=== PATIENT | female | born 1930 | race Caucasian/White ===

== ENCOUNTER 2019-10-25 14:00 | Observation (INO) ==
--- NOTE | 2019-10-25 14:08 | Emergency Department Note ---
ED Disposition Clinical Impression: Generalized weakness, Colonic mass, Liver metastasis, Hyponatremia Anemia Qualifiers: Anemia type: unspecified type Qualified Code(s): D64.9 - Anemia, unspecified Disposition: Admitted as Observation Condition on Discharge: Fair Additional Instructions: Patient was admitted to the floor under Dr. Larsen. Referrals: Provider,Referral, [Primary Care Provider] - Time of Disposition: 17:50 - Critical Care Critical Care Time: No Attestation: On , the high probability of a clinically significant, sudden or life threatening deterioration of the following system(s) required my full and direct attention, intervention and personal management. The time I documented below is in addition to time spent performing reported procedures but includes the following listed in this critical care notation. Medical Decision Making - Porfirio Inquiry Pt receiving controlled substance: No Vital Signs: 10/25/19 13:55 10/25/19 16:56 Temperature 99.9 F H Temperature Source Oral Pulse Rate [Right Radial] 70 63 Respiratory Rate 20 Blood Pressure [Right Arm] 112/76 122/64 Blood Pressure Mean [Right Arm] 88 83 Blood Pressure Source [Right Arm] Automatic Cuff Blood Pressure Position [Right Arm] Sitting 02 Sat by Pulse Oximetry 98 96 Oxygen Delivery Method Room Air - Lab Data Lab results reviewed: Yes: I reviewed the patient's lab results. Lab Results 10/25/19 14:30: WBC 4.6 L, RBC 3.67 L, Hgb 9.1 L, Hct 30.6 L, MCV 83.4, MCH 24.9 L, MCHC 29.8 L, RDW 14.1, Plt Count 298, MPV 7.8, Neut % (Auto) 88.0 H, Lymph % (Auto) 8.3 L, [place] % (Auto) 3.2, Eos % (Auto) 0.0 L, Baso % (Auto) 0.5, Neut # (Auto) 4.1, Lymph # (Auto) 0.4 L, [place] # (Auto) 0.2, Eos # (Auto) 0.0, Baso # (Auto) 0.0, Total Counted 100, Neutrophils % (Manual) 93 H, Lymphocytes % (Manual) 7 L, Platelet Estimate Normal, RBC Morphology Normal 10/25/19 14:30: Sodium 129 L, Potassium 4.2, Chloride 95 L, Carbon Dioxide 27, Anion Gap 11.2, BUN 19 H, Creatinine 0.83, Estimated Creat Clear 44, Estimated GFR 65, Est GFR ( Amer) 79, Glucose 106, Calcium 8.6, Total Bilirubin 0.3, AST 30, ALT 14, Alkaline Phosphatase 83, Troponin I < 0.02, Total Protein 7.1, Albumin 2.7 L, Globulin 4.4 H, Albumin/Globulin Ratio 0.6 L, Lipase 77 Result diagrams: 10/25/19 14:30 10/25/19 14:30 Orders (Tests/Meds): ED MEDICATIONS Discontinued Medications Generic Name Dose Route Start Last Admin Trade Name Freq PRN Reason Stop Dose Admin Ioversol 75 ml 10/25/19 15:53 10/25/19 15:54 Rad-Optiray 350 100ml Vial IV 10/25/19 15:54 75 ml ONCE ONE Administration Protocol Sodium Chloride 10 ml 10/25/19 15:53 10/25/19 15:54 Rad-Saline Flush 10ml Syringe IV 10/25/19 15:54 10 ml ONCE ONE Administration ORDERS Category Date Time Status Troponin I Q3H Lab 10/25/19 17:30 Ordered Troponin I Q3H Lab 10/25/19 20:30 Ordered - CT Data CT Scan: Abdomen Time Received: 17:[address] Reviewed: Yes: I have reviewed the patient's CT results Findings Narrative: CT ABDOMEN PELVIS W CON CLINICAL INDICATION: lower Quadrant abdominal pain Right lower quadrant pain, recent injury with pain COMPARISON: No exams were available for comparison TECHNIQUE: IV Contrast: 75ML OPTIRAY 350 Oral Contrast none Axial images obtained with sagittal and coronal reformats. All CT scans at the facility use one or more dose reduction, viz: automated exposure control, ma/kV adjustment per patient size (including targeted exams where dose is matched to indication, i.e. head), or iterative reconstruction technique. FINDINGS: LOWER THORAX: There is cardiomegaly with coronary artery calcification noted. There is mild prominence of the right atrium. ABDOMEN & PELVIS: There are multiple hepatic masses in the right hepatic lobe the measuring up to 4.8 cm suspicious for metastatic disease. Hypodense lesion is present in the left hepatic lobe at 13 mm and could be due to small cyst. The spleen, adrenal glands, and pancreas have an unremarkable appearance. There are multiple bilateral renal cysts. There is concentric thickening of the cecum consistent with a cecal mass suspicious for neoplasm. No evidence of small-bowel obstruction. There is a mild amount of retained colonic feces in the rectosigmoid region. There are post hysterectomy changes. No acute bony anomalies. IMPRESSION: There are multiple hypodense hepatic masses as well as concentric thickening of the cecum consistent with a cecal mass. 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 Nonspecific ST-T changes. - Physician Consults Physician Consulted: Dr. Larsen Time: 17:30 Reason -: Admission, Pt condition Comment/Response: Cussed with Dr. Larsen, regarding the patient and plan to get the patient admitted to the floor. Weakness HPI - General Chief complaint: Weakness Stated complaint: WEAKNESS Time Seen by Provider: 10/25/19 14:08 Mode of Arrival: EMS Source of Information: Relative Limitations: She seems to have dementia and is not able to give proper history. - History of Present Illness HPI Narrative: 89-year-old female was brought into the emergency department by the EMS for having complaining of right lower quadrant abdominal pain and also having generalized body weakness. According to the son the patient does not take care of herself well. She has been having issues with right lower quadrant abdominal pain for a while. Also has history of constipation. She has history of anemia. She is on iron pills. The son states that at times she may take more than what is needed of her iron pills and at times she takes more of her cardiac meds. He is very concerned about the patient. He states the patient does not want to move out of her house. The son thinks that the patient is not safe to live by herself. He wants her to be moved out either to an assisted living or to his sister's place. - Related Data Home Medications Medication Instructions Recorded Confirmed Losartan Potassium [Cozaar] 100 mg PO DAILY 06/19/18 09/12/18 Metoprolol Succinate [Toprol XL 50 mg PO BID 06/19/18 09/12/18 50mg Tablet] Aspirin [Aspirin 81mg EC Tab] 81 mg PO DAILY 09/12/18 09/12/18 Cyanocobalamin (Vitamin B-12) 2,500 mcg SL DAILY 09/12/18 09/12/18 [Vitamin B-12] Nitroglycerin [Nitrostat 0.4mg SL 0.4 mg SL Q5MINP PRN 09/12/18 09/12/18 Tablet] Allergies Allergy/AdvReac Type Severity Reaction Status Date / Time procaine [From Novocain] Allergy swelling Verified 06/19/18 08:53 [facility] History - Hepatitis A Screen Attestation statement:: This patient has been screened for Hepatitis A risk factors. I have reviewed the patient's past medical history: Yes Medical History: Denies:: Diabetes Mellitus Type 1, Diabetes Mellitus Type 2 - Social History Alcohol Intake: never ROS Obtained: Yes All systems reviewed & no additional complaints Physical Exam - General General appearance: alert, in no apparent distress - Head Head exam: atraumatic, normocephalic, normal inspection - Eye Eye exam: Present: normal appearance, PERRL, EOMI - ENT ENT exam: Present: normal exam, normal oropharynx, mucous membranes moist, normal external ear exam - Neck Neck exam: Present: normal inspection, full ROM, trachea midline - Chest Chest inspection: Present: normal inspection, symmetric chest wall rise. Absent: tenderness - Respiratory Respiratory exam: Present: normal lung sounds bilaterally. Absent: respiratory distress - Cardiovascular Cardiovascular exam: Present: regular rate, normal rhythm. Absent: JVD - Abdominal Exam Abdominal exam: Present: soft, tenderness (Her on palpation of the lower quadrant of the abdomen more on the right than the left. Patient seems to have large amount of stool in the lower quadrant.), normal bowel sounds. Absent: distention, guarding - Extremities Exam Extremities exam: Present: normal inspection, full ROM, normal capillary refill. Absent: calf tenderness - Back Exam Back exam: Present: normal inspection. Absent: tenderness - Neurological Exam Neurological exam: Present: alert, oriented X3, CN II-XII intact - Psychiatric Psychiatric exam: Present: normal affect, normal mood - Skin Skin exam: Present: warm, dry, intact, normal color
[2019-10-25 14:45] LABS: Basophils % 0.5 % (0.1-2.0); Hematocrit 30.6 % (37.0-47.0); Hemoglobin 9.1 g/dL (12.2-16.2); Lymphocytes # 0.4 K/mm3 (0.7-4.5); Lymphocytes % 8.3 % (10-50); Mean Corpuscular HGB Conc 29.8 g/dL (31.8-35.4); Mean Corpuscular Volume 83.4 fl (81-99); Mean Platelet Volume 7.8 fl (7.4-10.4); Monocytes # 0.2 K/mm3 (0.1-1.0); Monocytes % 3.2 % (1.7-9.3); Neutrophils # 4.1 K/mm3 (1.8-7.8); Platelet Count 298 K/mm3 (142-424); Red Blood Count 3.67 M/mm3 (4.20-5.40); Red Cell Distribution Width 14.1 % (11.5-17.5); White Blood Count 4.6 K/mm3 (4.8-10.8)
[2019-10-25 14:59] LABS: Alanine Aminotransferase 14 U/L (12-78); Albumin Level 2.7 gm/dL (3.4-5.0); Albumin/Globulin Ratio 0.6 (1.1-1.8); Alkaline Phosphatase 83 U/L (46-116); Anion Gap 11.2 mEq/L (5-15); Aspartate Amino Transferase 30 U/L (15-37); Bilirubin,Total 0.3 mg/dL (0.2-1.0); Blood Urea Nitrogen 19 mg/dL (7-18); Calcium 8.6 mg/dL (8.5-10.1); Carbon Dioxide 27 mmol/L (21.0-32.0); Chloride 95 mmol/L (98-107); Globulin 4.4 gm/dl (1.3-3.2); Glucose 106 mg/dL (74-106); Sodium 129 mmol/L (136-145); Total Protein,Serum 7.1 gm/dL (6.4-8.2)
[2019-10-25 15:27] LABS: Lymphocytes % 7 % (10-50); Neutrophils % 93 % (42-76); RBC Morphology Normal; Total Cells Counted 100
--- NOTE | 2019-10-25 17:47 | Electrocardiograph Report ---
APPROVED REPORT Exam: Resting ECG HR:75 bpm ECG Measurements Heart Rate 75 AXES TX P 91 QRSd 86 QRS 34 QT 426 T71 QTc 475 <Conclusion> Sinus Rhythm with multiple PAC'S Otherwise normal ECG Electronically signed by : Peterson Nation, 10/25/2019 17:46:48
--- NOTE | 2019-10-26 07:12 | Pharmacy Consult Notes ---
[facility] VTE Monitoring - Patient Demographics Admission date: 10/25/19 Report Date: 10/26/19 Time: 07:11 Allergies/Adverse Reactions: Patient Allergies procaine [From Novocain] Allergy (Verified 06/19/18 08:53) swelling Height: 1.73 m Weight: 63.758 kg Patient Problems: Current Active Problems Anemia (Acute) Generalized weakness (Acute) Colonic mass (Acute) Liver metastasis (Acute) Hyponatremia (Acute) - VTE Risk Labs: VTE Related Lab Results Hgb 9.1 g/dL (12.2-16.2) L 10/25/19 14:30 Hct 30.6 % (37.0-47.0) L 10/25/19 14:30 Plt Count 298 K/mm3 (142-424) 10/25/19 14:30 BUN 19 mg/dL (7-18) H 10/25/19 14:30 Creatinine 0.83 mg/dL (0.55-1.02) 10/25/19 14:30 Estimated Creat Clear 44 mL/min (50-200) 10/25/19 14:30 - Prophylaxis VTE Prophylaxis Ordered?: Yes Types of VTE Prophylaxis: TEDS Knee High Location of Applied Device: Bilateral Lower Extremeties
[2019-10-26 07:37] LABS: Basophils % 0.3 % (0.1-2.0); Eosinophils % 0.3 % (0.1-12.0); Hematocrit 28.7 % (37.0-47.0); Hemoglobin 8.7 g/dL (12.2-16.2); Lymphocytes # 0.5 K/mm3 (0.7-4.5); Lymphocytes % 8.8 % (10-50); Mean Corpuscular HGB Conc 30.2 g/dL (31.8-35.4); Mean Corpuscular Volume 82.7 fl (81-99); Mean Platelet Volume 7.9 fl (7.4-10.4); Monocytes # 0.3 K/mm3 (0.1-1.0); Monocytes % 5.2 % (1.7-9.3); Neutrophils # 4.6 K/mm3 (1.8-7.8); Neutrophils % 85.3 % (37.0-80.0); Platelet Count 263 K/mm3 (142-424); Red Blood Count 3.48 M/mm3 (4.20-5.40); White Blood Count 5.4 K/mm3 (4.8-10.8)
[2019-10-26 07:42] LABS: Anion Gap 12.6 mEq/L (5-15); Calcium 8.1 mg/dL (8.5-10.1)
--- NOTE | 2019-10-26 08:54 | History & Physical Report ---
*Admission Date: 10/25/19 *Chief complaint: Fall, hyponatremia, weakness *History of present illness: Ms. Cary is an 89-year-old female with limited outpatient medical management due to dislike of physicians. She presented to the ER yesterday at the request of her son due to multiple falls at home and worsening weakness and belly pain. He states she has not seen a doctor in approximately 2 years and he had to "trick her" into coming to the hospital. He has had significant concern for her wellbeing for quite some time as she has some dementia and lives by herself. He states he is her POA and wanted to have her abdominal pain assessed as well as underlying cause for her falls. She has not been having regular bowel movements for well over a year. Has had progressive abdominal pain most prominent in right lower abdomen for 4 to 5 years per his report with recent complaint of pain moving upper abdomen and hurting into her right back and chest. Upon arrival to the ER she had labs and imaging performed of her belly. Labs concerning for mild anemia, otherwise within normal limits. Imaging however concerning for metastatic cancer suspected to be colon cancer with large thickening of the cecum and numerous metastases to her liver. 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 Morning she continues to complain of pain, tenderness in right lower quadrant most predominantly. Denies nausea but is not very hungry and hurts after eating a little bit. Afebrile though temperature elevated. No shortness of breath. No chest pain. [facility] History I have reviewed the patient's past medical history: Yes Medical History: Denies:: Diabetes Mellitus Type 1, Diabetes Mellitus Type 2 *Have you ever received a pneumonia vaccine?: No *Have you received a flu vaccine this season?: No - *Social History Smoking Status: Never smoker Alcohol Intake: never *Occupational Status:: retired *Travel in the last 8 weeks: None Family Hx:: Cancer Review of Systems - Review of Systems Review of systems:: pertinent systems reviewed and negative unless documented below (10 point review of systems performed with the assistance of her son, pertinent positives and negatives as listed in HPI) Meds Home Medications Medication Instructions Recorded Confirmed Type Losartan Potassium [Cozaar] 100 mg PO DAILY 06/19/18 10/25/19 History Metoprolol Succinate [Toprol XL 50 mg PO BID 06/19/18 10/25/19 History 50mg Tablet] Aspirin [Aspirin 81mg EC Tab] 81 mg PO DAILY 09/12/18 10/25/19 History Cyanocobalamin (Vitamin B-12) 2,500 mcg SL DAILY 09/12/18 10/25/19 History [Vitamin B-12] Nitroglycerin [Nitrostat 0.4mg SL 0.4 mg SL Q5MINP PRN 09/12/18 10/25/19 History Tablet] Allergies Allergy/AdvReac Type Severity Reaction Status Date / Time procaine [From Novocain] Allergy swelling Verified 06/19/18 08:53 Exam Vital signs and Labs for Last 24 Hours: Temp Pulse Resp BP Pulse Ox 98.1 F 92 H 18 122/74 98 10/26/19 08:00 10/26/19 08:00 10/26/19 08:00 10/26/19 08:00 10/26/19 08:00 Laboratory Results - last 24 hr 10/25/19 14:30: WBC 4.6 L, RBC 3.67 L, Hgb 9.1 L, Hct 30.6 L, MCV 83.4, MCH 24.9 L, MCHC 29.8 L, RDW 14.1, Plt Count 298, MPV 7.8, Neut % (Auto) 88.0 H, Lymph % (Auto) 8.3 L, [place] % (Auto) 3.2, Eos % (Auto) 0.0 L, Baso % (Auto) 0.5, Neut # (Auto) 4.1, Lymph # (Auto) 0.4 L, [place] # (Auto) 0.2, Eos # (Auto) 0.0, Baso # (Auto) 0.0, Total Counted 100, Neutrophils % (Manual) 93 H, Lymphocytes % (Manual) 7 L, Platelet Estimate Normal, RBC Morphology Normal 10/25/19 14:30: Sodium 129 L, Potassium 4.2, Chloride 95 L, Carbon Dioxide 27, Anion Gap 11.2, BUN 19 H, Creatinine 0.83, Estimated Creat Clear 44, Estimated GFR 65, Est GFR ( Amer) 79, Glucose 106, Calcium 8.6, Total Bilirubin 0.3, AST 30, ALT 14, Alkaline Phosphatase 83, Troponin I < 0.02, Total Protein 7.1, Albumin 2.7 L, Globulin 4.4 H, Albumin/Globulin Ratio 0.6 L, Lipase 77 10/25/19 17:35: Troponin I < 0.02 10/25/19 21:29: POC Glucose 108 10/26/19 05:39: POC Glucose 141 H 10/26/19 07:10: WBC 5.4, RBC 3.48 L, Hgb 8.7 L, Hct 28.7 L, MCV 82.7, MCH 25.0 L , MCHC 30.2 L, RDW 14.0, Plt Count 263, MPV 7.9, Neut % (Auto) 85.3 H, Lymph % (Auto) 8.8 L, [place] % (Auto) 5.2, Eos % (Auto) 0.3, Baso % (Auto) 0.3, Neut # (Auto) 4.6, Lymph # (Auto) 0.5 L, [place] # (Auto) 0.3, Eos # (Auto) 0.0, Baso # (Auto) 0.0 10/26/19 07:10: Sodium 130 L, Potassium 3.6, Chloride 98, Carbon Dioxide 23, Anion Gap 12.6, BUN 15, Creatinine 0.78, Estimated Creat Clear 40, Estimated GFR 70, Est GFR ( Amer) 85, Glucose 117 H, Calcium 8.1 L I & O for Last 24 hours: Intake & Output 10/23/19 10/24/19 10/25/19 10/26/19 23:59 23:59 23:59 23:59 Intake Total 816 / 816 Balance 816 / 816 Weight 70.307 kg 63.758 kg - Constitutional mild distress, average body habitus, chronically ill appearing Comments: Elderly - *Routine HEENT Exam Head: Present: normocephalic Eye: Present: EOMI, PERRL ENT: Present: mucous membranes moist - *Routine Neck Exam Present: supple. Absent: lymphadenopathy - *Routine Respiratory Exam Present: CTA bilaterally - *Routine Cardiovascular Exam Present: murmur, irregularly irregular. Absent: JVD - *Routine Abdominal Exam Present: soft, normoactive bowel sounds, tenderness (Exquisitely tender in right lower quadrant, moderate tenderness right upper quadrant, no rebound) - *Routine Extremities Exam Absent: cyanosis, clubbing, edema - *Routine Skin Exam Present: pallor, warm. Absent: rash - *Routine Neurological Exam Present: alert Oriented to person Assessment and Plan (1) Colon cancer metastasized to liver Current visit: Yes Status: Acute Category: Medical Code(s): C18.9 - Malignant neoplasm of colon, unspecified; C78.7 - Secondary malignant neoplasm of liver and intrahepatic bile duct New diagnosis. Large mass at ileocecal junction with numerous metastases very sized to her liver. (2) Anemia Current visit: Yes Status: Chronic Qualifiers: Anemia type: iron deficiency Qualified Code(s): D64.9 - Anemia, unspecified Category: Medical Code(s): D64.9 - Anemia, unspecified (3) Colonic mass Current visit: Yes Status: Acute Category: Medical Code(s): K63.89 - Other specified diseases of intestine Diagnosis, longstanding however given symptoms (4) Generalized weakness Current visit: Yes Status: Acute Category: Medical Code(s): R53.1 - Weakness Worsening over the past few months (5) Hyponatremia Current visit: Yes Status: Acute Category: Medical Code(s): E87.1 - Hypo- osmolality and hyponatremia Unsure of chronicity however suspect gradual and due to poor nutrition in the setting of metastatic cancer (6) Liver metastasis Current visit: Yes Status: Acute Category: Medical Code(s): C78.7 - Secondary malignant neoplasm of liver and intrahepatic bile duct (7) Hypertension Current visit: No Status: Chronic Category: Medical Code(s): I10 - Essential (primary) hypertension - Assessment and plan all Dx Assessment and Plan for all problems:: 89-year-old female with poor medical compliance, not seen by primary care physician in many years, multiple comorbidities consisting of A. fib, cystic kidney disease, hypertension, chronic anemia who presents with worsening weakness and hyponatremia. Found to have metastatic colon cancer. Given her advanced age and comorbidities, along with poor desire for medical intervention, she is best suited for hospice management. Discussed hospice with family and they are in agreement and would like to take her home to live with her daughter with the assistance of hospice. Feel this is reasonable. We will consult hospice today and anticipate likely discharge tomorrow. Continue IV fluids. Regular diet, patient not interested in eating much however this allows her what ever option she finds palatable. Extensive discussion with family today about cancer staging and suspecting diagnosis along with anticipated prognosis and potential complications. They are all in agreement that quality of life is important to patient and want to focus on her comfort and not aggressive futile therapies. CODE STATUS DNR
[2019-10-26 09:52] LABS: Hypochromasia 1+; Lymphocytes % 8 % (10-50); Monocytes % 4 % (2-9); Neutrophils % 88 % (42-76); Total Cells Counted 100
--- NOTE | 2019-10-26 19:24 | Discharge Summary ---
General - General Admission date:: 10/25/19 Discharge date: 10/27/19 HPI HPI: Ms. Cary is an 89-year-old female with limited outpatient medical management due to dislike of physicians. She presented to the ER yesterday at the request of her son due to multiple falls at home and worsening weakness and belly pain. He states she has not seen a doctor in approximately 2 years and he had to "trick her" into coming to the hospital. He has had significant concern for her wellbeing for quite some time as she has some dementia and lives by herself. He states he is her POA and wanted to have her abdominal pain assessed as well as underlying cause for her falls. She has not been having regular bowel movements for well over a year. Has had progressive abdominal pain most prominent in right lower abdomen for 4 to 5 years per his report with recent complaint of pain moving upper abdomen and hurting into her right back and chest. Upon arrival to the ER she had labs and imaging performed of her belly. Labs concerning for mild anemia, otherwise within normal limits. Imaging however concerning for metastatic cancer suspected to be colon cancer with large thickening of the cecum and numerous metastases to her liver. 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 Morning she continues to complain of pain, tenderness in right lower quadrant most predominantly. Denies nausea but is not very hungry and hurts after eating a little bit. Afebrile though temperature elevated. No shortness of breath. No chest pain. Hospital Course Hospital Course: Ms. Bar was found to have suspected metastatic colon cancer on admission with initial imaging. Given advanced age, comorbidities, patient's long history of avoidance of doctors and poor follow-up, had extensive discussion with family about palliative/hospice care and focusing on quality and comfort as opposed to treatment options. Any options however at this time would be life-prolonging and palliative as her metastatic disease would not be amenable to cure. Family stated that the patient would not want to be aggressive about treatment and opted to pursue hospice. Hospice was consulted during admission, plan to discharge in care of daughter. Patient has remained hemodynamically stable, pain well controlled with minimal need for treatment. Tolerating small amounts of p.o. intake. Stable for discharge to hospice care. Recommend Tylenol 3 to start with for pain control as patient does not like strong pain medication however when pain advances, recommend initiating Roxanol therapy. Discussed possible complications including bowel perforation and the rapid decline this would likely induce. Family stated understanding. Objective Vital signs: Temp Pulse Resp BP Pulse Ox 98.2 F 73 18 145/74 H 96 10/26/19 16:00 10/26/19 16:00 10/26/19 16:00 10/26/19 16:00 10/26/19 16:00 Narrative: - Constitutional NAD, average body habitus, chronically ill appearing Comments: Elderly - *Routine HEENT Exam Head: Present: normocephalic Eye: Present: EOMI, PERRL ENT: Present: mucous membranes moist - *Routine Neck Exam Present: supple. Absent: lymphadenopathy - *Routine Respiratory Exam Present: CTA bilaterally - *Routine Cardiovascular Exam Present: murmur, irregularly irregular. Absent: JVD - *Routine Abdominal Exam Present: soft, normoactive bowel sounds, tenderness (Exquisitely tender in right lower quadrant, moderate tenderness right upper quadrant, no rebound) - *Routine Extremities Exam Absent: cyanosis, clubbing, edema - *Routine Skin Exam Present: pallor, warm. Absent: rash - *Routine Neurological Exam Present: alert, Oriented to person Results Labs on day of discharge: Labs from last 24 hours 10/26/19 10/26/19 10/26/19 18:27 07:10 07:10 WBC 5.4 RBC 3.48 L Hgb 8.7 L Hct 28.7 L MCV 82.7 MCH 25.0 L MCHC 30.2 L RDW 14.0 Plt Count 263 MPV 7.9 Neut % (Auto) 85.3 H Lymph % (Auto) 8.8 L Real % (Auto) 5.2 Eos % (Auto) 0.3 Baso % (Auto) 0.3 Neut # (Auto) 4.6 Lymph # (Auto) 0.5 L Real # (Auto) 0.3 Eos # (Auto) 0.0 Baso # (Auto) 0.0 Total Counted 100 Neutrophils % (Manual) 88 H Lymphocytes % (Manual) 8 L Monocytes % (Manual) 4 Platelet Estimate Normal Hypochromasia 1+ Sodium 130 L Potassium 3.6 Chloride 98 Carbon Dioxide 23 Anion Gap 12.6 BUN 15 Creatinine 0.78 Estimated Creat Clear 40 Estimated GFR 70 Est GFR ( Amer) 85 Glucose 117 H POC Glucose 115 H Calcium 8.1 L 10/26/19 10/25/19 05:39 21:29 WBC RBC Hgb Hct MCV MCH MCHC RDW Plt Count MPV Neut % (Auto) Lymph % (Auto) Real % (Auto) Eos % (Auto) Baso % (Auto) Neut # (Auto) Lymph # (Auto) Real # (Auto) Eos # (Auto) Baso # (Auto) Total Counted Neutrophils % (Manual) Lymphocytes % (Manual) Monocytes % (Manual) Platelet Estimate Hypochromasia Sodium Potassium Chloride Carbon Dioxide Anion Gap BUN Creatinine Estimated Creat Clear Estimated GFR Est GFR ( Amer) Glucose POC Glucose 141 H 108 Calcium DS: Diagnosis - Discharge Diagnosis (1) Colon cancer metastasized to liver Status: Acute (2) Anemia Status: Chronic (3) Colonic mass Status: Acute (4) Generalized weakness Status: Acute (5) Hyponatremia Status: Acute (6) Liver metastasis Status: Acute (7) Hypertension Status: Chronic Discharge Plan - Patient Discharge Instructions ACTIVITY: Continue current activity DIET: continue same diet Patient Instructions: Liver Cancer, Colon Cancer, Anemia, DI for Liver Cancer, DI for Hyponatremia, DI for Muscle Weakness - Follow up Plan Disposition: Hospice - Home Home Medications: Home Medications Medication Instructions Recorded Confirmed Type Losartan Potassium [Cozaar] 100 mg PO DAILY 06/19/18 10/25/19 History Metoprolol Succinate [Toprol XL 50 mg PO BID 06/19/18 10/25/19 History 50mg Tablet] Aspirin [Aspirin 81mg EC Tab] 81 mg PO DAILY 09/12/18 10/25/19 History Cyanocobalamin (Vitamin B-12) 2,500 mcg SL DAILY 09/12/18 10/25/19 History [Vitamin B-12] Nitroglycerin [Nitrostat 0.4mg SL 0.4 mg SL Q5MINP PRN 09/12/18 10/25/19 History Tablet] Acetaminophen with Codeine 1 - 2 tab PO Q6HP PRN #30 tab 10/27/19 Rx [Tylenol with Codeine #3 tablet] Morphine Sulfate [Roxanol 20mg/mL 5 mg PO Q4HP PRN #30 ml 10/27/19 Rx 1mL oral soln UDC] Prescriptions/Medication Reconciliation: Continued Losartan Potassium [Cozaar] 100 mg PO DAILY Metoprolol Succinate [Toprol XL 50mg Tablet] 50 mg PO BID Discontinued Aspirin [Aspirin 81mg EC Tab] 81 mg PO DAILY Nitroglycerin [Nitrostat 0.4mg SL Tablet] 0.4 mg SL Q5MINP PRN PRN Reason: chest pain Cyanocobalamin (Vitamin B-12) [Vitamin B-12] 2,500 mcg SL DAILY - Problem Reconciliation Problems Reviewed?: Yes
--- NOTE | 2019-11-02 20:09 | Electrocardiograph Report ---
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
== END 2019-10-27 12:32 | disposition hospice, home (50) ==
LOC: 2ND 14:00 → ER 14:00 → 2ND 19:44
PROVIDERS: ADMIT Internal Medicine Adolescent Medicine; ATTEND Internal Medicine Adolescent Medicine
DX: F03.90 Unspecified dementia, unspecified severity, without behavioral disturbance, psychotic disturbance, mood disturbance, and anxiety; Z91.81 History of falling; Z79.82 Long term (current) use of aspirin; C78.7 Secondary malignant neoplasm of liver and intrahepatic bile duct; Z88.8 Allergy status to other drugs, medicaments and biological substances; N28.89 Other specified disorders of kidney and ureter; D64.9 Anemia, unspecified; R19.09 Other intra-abdominal and pelvic swelling, mass and lump; Z79.899 Other long term (current) drug therapy; C18.9 Malignant neoplasm of colon, unspecified; I48.91 Unspecified atrial fibrillation; K63.89 Other specified diseases of intestine; I10 Essential (primary) hypertension; R53.1 Weakness; E87.1 Hypo-osmolality and hyponatremia
CPT/HCPCS: 36415; 70470; 71010; 71045; 74177; 80048; 80053; 82962; 83690; 84484; 85007; 85025; 93005; 99284; G0378; Q9967